=== PATIENT | female | born 1945 | race Caucasian/White ===

== ENCOUNTER 2017-02-04 18:07 | Emergency (ER) | payer OTHER ==
[~2017-02-04] VITALS: Ht 157.5 cm; Wt 59.5 kg
[~2017-02-04 18:07] MED LIST: MEDROL DOSEPAK4 MG PO; PROVENTIL HFA6.7 GM IH; ROBITUSSIN AC,T10 ML PO; SERTRALINE HCL100 MG PO; TESSALON PERLE100 MG PO; ZITHROMAX500 MG PO; ZYRTEC10 M3 PO
[2017-02-04 20:19] LABS: HEMATOCRIT 41.7 % (36.0-46.0); MCH 30.2 PG (29.0-34.0); MCHC 34.5 G/DL (30.0-36.0); MCV 87.4 FL (83-99); MEAN PLAT.VOLUME 9.2 uM^3 (9.5-12.4); PLATELET COUNT 305 K/uL (156-360); RBC DIS.WIDTH-CV 13.3 % (11.8-14.6); RBC DIS.WIDTH-SD 42.9 % (39-53); RED BLOOD COUNT 4.77 M/uL (3.80-5.20); WHITE BLOOD COUNT 7.3 K/uL (4.1-10.2)
[2017-02-04 20:25] LABS: CHLORIDE 112 mEq/L (99-109); POTASSIUM 3.3 mEq/L (3.7-5.4); PROTHROMBIN TIME 10.8 SEC (10.2-12.9); SODIUM 144 mEq/L (136-147)
[2017-02-04 20:26] LABS: GLUCOSE 95 mg/dL (70-99)
[2017-02-04 20:28] LABS: ANION GAP 8 MEQ/L (2-14)
[2017-02-04 20:30] LABS: GFR ESTIMATE (CALCULATED) > 59 mL/min/
[2017-02-04 20:31] LABS: UREA NITROGEN (BUN) 10 mg/dL (9-23)
[2017-02-04 20:33] LABS: PTT 27.3 SEC (25-37)
[2017-02-05 01:07] VITALS: BP 176/88
== END 2017-02-05 01:10 | disposition home or self-care (01) ==
LOC: EME 18:07
PROVIDERS: Emergency Medicine
DX: I67.1 Cerebral aneurysm, nonruptured (principal); Z98.2 Presence of cerebrospinal fluid drainage device; S00.11XA Contusion of right eyelid and periocular area, initial encounter; X58.XXXA Exposure to other specified factors, initial encounter; G91.9 Hydrocephalus, unspecified; G93.89 Other specified disorders of brain
CPT/HCPCS: 70450; 70496; 80048; 85027; 85610; 85730; 99281; 99284